=== PATIENT | female | born 1995 | race Caucasian/White ===

== ENCOUNTER 2016-08-09 09:01 | Emergency (ER) | payer OTHER ==
[2016-08-09 09:54] LABS: PH,URINE 6.5 (5.0 - 9.0); URINE BILIRUBIN NEGATIVE (NEGATIVE); URINE BLOOD TRACE (NEGATIVE); URINE GLUCOSE (UA) NORMAL (NORMAL); URINE KETONE NEGATIVE (NEGATIVE); URINE LEUKOCYTE ESTERASE TRACE (NEGATIVE); URINE NITRATE NEGATIVE (NEGATIVE); URINE PROTEIN NEGATIVE (NEGATIVE)
[2016-08-09 10:12] LABS: URINE BACTERIA TRACE (NONE SEEN); URINE RBC 0-5 /[HPF] (0-2); URINE SQUAMOUS EPITHELIAL CELL 0-10 /[HPF] (NONE SEEN); URINE WBC 0-5 /[HPF] (0-5)
== END 2016-08-09 10:39 | disposition home or self-care (01) ==
LOC: ER 09:01
PROVIDERS: Emergency Medicine
DX: R10.30 Lower abdominal pain, unspecified (principal); K21.9 Gastro-esophageal reflux disease without esophagitis; R10.9 Unspecified abdominal pain; R31.9 Hematuria, unspecified; Z88.2 Allergy status to sulfonamides; Z79.899 Other long term (current) drug therapy
CPT/HCPCS: 81001; 81025; 99283

== ENCOUNTER 2016-10-03 22:27 | Emergency (ER) | payer OTHER ==
[2016-10-03 23:08] LABS: BASO % 0.3 % (0.1-1.2); EOS # 0.1 10_X3_uL (0.0-0.4); EOS % 0.7 % (0.7-5.8); GRAN # 5.4 10_X3_uL (1.6-6.1); HEMATOCRIT 41.5 % (34-45); HEMOGLOBIN 14.1 g/dL (11.2-15.7); LYMPH # 2.8 10_X3_uL (1.2-3.7); MEAN CORPUSCULAR HEMOGLOBIN 30.6 pg (27.0-33.0); MEAN PLATELET VOLUME 9.7 fl (7.5-11.5); MONO # 0.5 10_X3_uL (0.2-0.9); PLATELET COUNT 381 x10_3/uL (182-369); RED BLOOD COUNT 4.61 x10_6/uL (3.9-5.2); RED CELL DISTRIBUTION WIDTH 12.7 % (11.7-14.4); WHITE BLOOD COUNT 8.8 x10_3/uL (4.0-10.0)
[2016-10-03 23:21] LABS: ALBUMIN 4.5 gm/dL (3.4-5.0); ALKALINE PHOSPHATASE 63 U/L (50-136); ALT/SGPT 12 U/L (3.5-33.9); AST/SGOT 16 U/L (7.04-26.96); BILIRUBIN,TOTAL 0.37 mg/dL (0.0-1.0); BLOOD UREA NITROGEN 10 mg/dL (7-18); CALCIUM 9.1 mg/dL (8.7-10.7); CARBON DIOXIDE 23 mmol/L (21-32); CREATINE KINASE 65 U/L (21-215); CREATININE 0.6 mg/dL (0.6-1.3); GLUCOSE,RANDOM 87 mg/dL (70-99); POTASSIUM 3.4 mmol/L (3.5-5.1); SODIUM 140 mmol/L (136-145); TOTAL PROTEIN 7.8 gm/dL (6.4-8.2)
== END 2016-10-04 02:47 | disposition home or self-care (01) ==
LOC: ER 22:27
PROVIDERS: Emergency Medicine
DX: R07.89 Other chest pain (principal); K21.9 Gastro-esophageal reflux disease without esophagitis; Z88.2 Allergy status to sulfonamides; Z79.899 Other long term (current) drug therapy
CPT/HCPCS: 36415; 71010; 80053; 81025; 82550; 82553; 85025; 93005; 99285-25

== ENCOUNTER 2016-11-06 17:46 | Emergency (ER) | payer OTHER | END 2016-11-06 19:32 | disposition home or self-care (01) | LOC: ER 17:46 | DX: L55.9 Sunburn, unspecified (principal); R00.0 Tachycardia, unspecified; Z88.2 Allergy status to sulfonamides; Z79.899 Other long term (current) drug therapy | CPT/HCPCS: 96360; 99070; 99282-25 ==